=== PATIENT | male | born 1990 | race Caucasian/White ===

== ENCOUNTER 2021-05-07 10:01 | Outpatient (CLI) | payer OTHER ==
[2021-05-07 13:04] VITALS: BP 136/75
--- NOTE | 2021-05-07 13:04 | SLEEP CARE CONSULTATION ---
Information from patient questionnaire entered by Karen Magallon MA. I have reviewed and concur with the information entered by Karen Magallon MA. This document represents the service I personally performed and the decisions made by me, Nancy Lemus MD, [facility]. History of Present Illness Service Date and Time: 05/07/2021 1001 Reason for Visit: New patient (ONSET 03/2019, NO PRIORS,) Chief Complaint: reports: Insomnia, Snoring, Observed pauses in breathing, Fatigue, Frequent awakenings at night, Other Date of Onset: 3 PLUS YEARS Usual bedtime: 0130 - 0200 Time it takes to fall asleep: 30 MINUTES TO N HOUR Snores at night: Yes Observed to quit breathing while asleep: Yes Sleeps alone due to snoring: No Number of times waking at night: 3 OR MORE Reasons for waking at night: reports: Choking, Gasping for air, Other Toss, Turn, or Twitch while sleeping: Yes Recalls having dreams: Yes Usually gets out of bed at: 1000 AM Morning headache: No Sleepy or fatigued during the day: No Ever fallen asleep while driving: No Takes day naps: No Dreams during day naps: Yes Prior sleep studies: No Additional HPI information: I had the pleasure of seeing Mr. Marcus today regarding the possibility of him hav ing a sleep disorder. As you know, he is a 30-year-old gentleman who complains of loud snore, observed apneas, and frequent awakening. The patient tells me that he normally goes to bed around 1:30 - 2 am, and it takes him approximately 30 - 60 minutes to fall asleep. He has been told that he snores loudly and irregularly at night. He has also been observed to stop breathing in his sleep. His girlfriend can still sleep in the same bed. He can recall waking up on the average of 3+ times during the night. Most of the time he wakes up because of unknown reason. He has awakened occasionally because of his own snoring, choking, and having to gasp for air. There is a lot of tossing and turning in his sleep. No somniloquy (sleep talking) or somnambulism (sleep walking). Generally, he can recall having dreams. In the morning he usually gets up out of the bed around 10 a.m. occasionally not feeling refreshed or rested. He usually does not have a morning headache. During the day he does not feel sleepy or fatigued. His score on [place] Sleepiness Scale is 2 out of 24. He never has fallen asleep while driving nor has had any accident due to sl eepiness. He usually does not take naps during the day. Upon falling asleep during the day he reports having dreams. He has never had sleep paralysis, experienced cataplexy or symptoms of restless leg syndrome. He denies having impaired concentration during the day. 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 Patient is Single and lives in [place]. Have you smoked in the past 12 months: Yes Cigarettes per day (20/pack): 20 Years of smokin Smoking Pack Years: 10.0 Alcohol use: Yes Alcohol amount and frequency: 2 - 3 X WEEKLY Caffeine use: Yes Caffeine amount and frequency: 2 X DAILY Family History Family history of sleep disordered breathing: Yes Family Hx Sleep Apnea: Mother: Snoring, Sleep apnea - Untreated, Father: Snoring, Sleep apnea - Untreated Allergies and Home Medications Known drug allergies: No Drug allergies reviewed: Yes (none) Home medication list reviewed: Yes (none) Review of Systems Cardiovascular: denies: high blood pressure, palpitations, chest pain, irregular heart rate or pulse, leg or foot swelling, have to sleep sitting up, other Respiratory: denies: shortness of breath, wheeze, sputum production, chronic cough, other Gastrointestinal: denies: heartburn, difficulty swallowing, nausea, vomitting, diarrhea, abdominal pain, other Urinary: denies: incontinence, frequency, urgency, impotence, other Neurological: denies: headaches, seizure, head trauma, disorientation, speech dysfunction, gait or balance problems, fainting or unconsciousness, other Psychiatric: denies: Attention Deficit Hyperactivity, anxiety, depression, mood disorder, claustrophobia, other Ear/Nose/Throat: denies: nasal congestion, sinus problems, nose bleeds, dry mouth/throat, hoarseness, injury to nose, tonsillectomy, wisdom teeth removed, other Endocrine: denies: thyroid disease, history of goiter, sluggishness, too hot or cold, excessive thirst, increased appetite, increased urination, unexplained weakness, other Musculoskeletal: denies: joint pain, neck pain, back pain, joint swelling, muscle pain or cramping, mobility problems, other Immunologic: denies: sneezing, rash, itching, allergies to food or environment, other Physical Exam Vital signs obtained and entered by: Cindy MAGALLON CMA [facility] Blood Pressure: 136/75 (RIGHT, PULSE 82, REP 16,) Cuff size: wrist Heart Rate: 78 O2 Saturation: 98 (CLOTH MASK) Height: 5 ft 10 in Weight: 208 lb (W/O CLOTHES) Body Mass Index: 29.8 BMI Classification: Overweight Mood/affect: normal HEENT: No craniofacial malformation Nostrils: partially obstructed Turbinates: normal Septum: midline Mouth and throat: narrow oropharynx Soft palate: long Hard palate: normal Uvula: normal Uvula visualization: 50% Mallampati Class II Tongue: normal in size Impression and Plan IMPRESSION: 1. Obstructive Sleep Apnea-Hypopnea Syndrome, as suggested by history of loud and irregular snoring, observed cessation of breath while asleep, nocturnal choking, and frequent awakenings during the night. Narrow oropharynx and obesity are common predisposing factors for obstructive sleep apnea-hypopnea syndrome. I recommend proceeding to polysomnography to confirm the diagnosis and to assess severity. If he has significant sleep disordered breathing, a manual CPAP titration study will also be performed to find the optimal treatment pressure. I informed the patient of what the sleep studies involve and after some discussion, he agreed to proceed. Plan: 1. Schedule polysomnography + manual CPAP titration study and return in 1 to 2 weeks after the study to discuss result and initiate therapy. 2. Avoid long distance driving or when feeling sleepy. 3. Avoid alcohol, sedative and muscle relaxant around bedtime. 4. Attempt to lose weight. Follow up with Sleep Care in: 1-2 months Plan: sleep study Visit Type: In Office Time Spent with Patient (minutes): 15 Provider Statement: I spent 100% of the Face to Face Visit with the patient with greater than 50% spent counseling the patient and coordination of care.
== END 2021-05-07 10:02 | disposition home or self-care (01) ==
LOC: SC 10:01
PROVIDERS: ATTEND Internal Medicine Pulmonary Disease
DX: R06.83 Snoring (principal); G47.8 Other sleep disorders; R06.81 Apnea, not elsewhere classified
CPT/HCPCS: 99202; 99212

== ENCOUNTER 2021-05-29 12:22 | Outpatient (CLI) | payer OTHER | END 2021-05-29 12:23 | disposition home or self-care (01) | LOC: SC 12:22 | PROVIDERS: ATTEND Nurse Practitioner Family | DX: G47.33 Obstructive sleep apnea (adult) (pediatric) (principal); R09.02 Hypoxemia; R00.0 Tachycardia, unspecified | CPT/HCPCS: 95806 ==

== ENCOUNTER 2021-06-25 12:36 | Outpatient (CLI) | payer OTHER ==
[2021-06-25 22:11] VITALS: BP 112/78
--- NOTE | 2021-06-25 22:11 | SLEEP CARE CONSULTATION ---
Information from patient questionnaire entered by Karen Magallon MA. I have reviewed and concur with the information entered by Karen Magallon MA. This document represents the service I personally performed and the decisions made by me, Nancy Lemus MD, [facility]. History of Present Illness Service Date and Time: 06/25/2021 1236 Initial [place] Sleepiness Scale score: 2 (2021) Current [place] Sleepiness Scale score: 4 (07/06) Additional HPI information: Mr. Marcus returned for follow up of the sleep study he had on 05/30/2021. The test showed mild obstructive sleep apnea-hypopnea, with an AHI of 12.8/hr and kanu SaO2 of 80%. During the study, the patient had 39 apneas (39 obstructive, 0 central, 0 mixed) and 32 hypopneas. The longest episode lasted 68.5 seconds. The patient did not sleep supine during this study (supine AHI was 0, and non- supine, 12.80). Hypoxemia was mild, with the lowest oxygen saturation of 80 % and 33.3 minutes with SaO2 under 90%. Baseline oxygen saturation was normal (Average oxygen saturation was 94%). The patient was informed of these findings. I explained to him the pathophysiology behind obstructive sleep apnea. We then spent quite a bit of time discussing different treatment options. For mild obstructive sleep apnea, surgery and oral appliance are alternatives to nasal CPAP therapy but in moderate or severe cases, nasal CPAP is the most effective and reliable treatment. Weight loss in an obese individual is strongly recommended. After some discussion, he opted to go with the nasal CPAP therapy. I explained to him how CPAP machine works and what to expect when using the machine. He is encouraged to use CPAP every night especially in the first 2 to 3 nights in order to get used to it. He should call his CPAP supplier or me to discuss any mechanical problem that may occur. If he snores or feels like he is not getting enough air from the machine, he should notify me and I will increase the pressure. Sleep Study - Results Type of Sleep Study: Home sleep study (F/U HOME STUDY, 05/30/2021 [facility],) Prior sleep studies: No Allergies and Home Medications Drug allergies reviewed: Yes Home medication list reviewed: Yes Physical Exam Vital signs obtained and entered by: ITALO PINEDA Blood Pressure: 112/78 (RIGHT, RESP 16, PULSE 60.) Heart Rate: 61 O2 Saturation: 97 (PAPER MASK) Height: 5 ft 10 in Weight: 215 lb (W/O CLOTHES) Body Mass Index: 30.8 BMI Classification: Obese Impression and Plan IMPRESSION: 1. Obstructive Sleep Apnea-Hypopnea Syndrome, mild, associated with mild hypoxemia. Possibly, this is the cause of the patients symptoms of unrefreshed sleep, and excessive daytime sleepiness. As mentioned above, the patient will be started on an autoCPAP set between 5 and 15 cmH2O. Depending on his response and compliance he may be brought back for an overnight CPAP titration study. PLAN: 1. Prescription made for an autoCPAP, heated humidifier, and related supplies. 2. Attempt to lose weight and avoid alcohol consumption near bedtime. 3. Return for follow up after one month of using the CPAP. Prescriptions: Auto CPAP Follow up with Sleep Care in: 1-2 months Visit Type: In Office Time Spent with Patient (minutes): 15 Provider Statement: I spent 100% of the Face to Face Visit with the patient with greater than 50% spent counseling the patient and coordination of care.
== END 2021-06-25 12:37 | disposition home or self-care (01) ==
LOC: SC 12:36
PROVIDERS: ATTEND Internal Medicine Pulmonary Disease
DX: G47.33 Obstructive sleep apnea (adult) (pediatric) (principal); R09.02 Hypoxemia; E66.9 Obesity, unspecified; Z68.30 Body mass index [BMI] 30.0-30.9, adult
CPT/HCPCS: 99212

== ENCOUNTER 2022-01-24 08:00 | Outpatient (CLI) | payer OTHER ==
[2022-01-24 13:35] LABS: INFLUENZA A- RESP PCR PANEL NOT DETECTED; INFLUENZA B - RESP PCR PANEL NOT DETECTED; RSV- RESP PCR PANEL NOT DETECTED; SARS-CoV-2 -RESP PCR PANEL NOT DETECTED
== END 2022-01-24 23:59 | disposition home or self-care (01) ==
LOC: LAB.N 08:00
PROVIDERS: ATTEND Registered Nurse
DX: U07.1 COVID-19 (principal)
CPT/HCPCS: 87637

== ENCOUNTER 2022-03-17 11:48 | Emergency (ER) | payer OTHER ==
[2022-03-17 12:39] VITALS: BP 147/87
[2022-03-17] MEDS ORDERED: LIDOCAINE 1% 2 ML VIAL SUBQ STA (12:45)
--- NOTE | 2022-03-17 12:57 | ED Physician Documentation ---
History of Present Illness - Stated complaint Stated Complaint: LT EAR RING STUCK - Chief complaint Chief Complaint: Heent - History obtained from History obtained from: Patient, Family - History of Present Illness Timing: Last night Pain level max: 3 Pain level now: 3 - Additonal information Additional information: 31-year-old male presents to the emergency department with an earring backing Stuck in the left earlobe. The piercing is about 3 months old. No fevers. No chills. No cough. No congestion. No drainage. Attempted to remove it at home but was unable to. Review of Systems Constitutional: denies: Fever, Chills GI: denies: Vomiting Skin: denies: Rash Musculoskeletal: denies: Neck pain, Back pain Neurologic: denies: Headache PD PAST MEDICAL HISTORY - Past Medical History Past Medical History: No Cardiovascular: None Respiratory: None Neuro: None Endocrine/Autoimmune: None GI: None : None HEENT: None Psych: None Musculoskeletal: None Derm: None - Past Surgical History Past Surgical History: No - Present Medications Home Medications: Ambulatory Orders Medication Instructions Recorded Confirmed No Known Home Medications 03/17/22 03/17/22 - Allergies Allergies/Adverse Reactions: Allergies Allergy/AdvReac Type Severity Reaction Status Date / Time No Known Drug Allergies Allergy Verified 03/17/22 12:00 - Social History Does the pt smoke?: No Smoking Status: Never smoker Does the pt drink ETOH?: Yes Does the pt have substance abuse?: No - Immunizations Immunizations are current?: Yes PD ED PE NORMAL - Vitals Vital signs reviewed: Yes - General General: Alert and oriented X 3, No acute distress - HEENT HEENT: Moist mucous membranes, Other (L earlobe - metal backing visible, mostly subcutaneous. mild erythema and swelling) - Derm Derm: Warm and dry - Neuro Neuro: Alert and oriented X 3 - Psych Psych: Normal mood, Normal affect Results - Vitals Vitals: Vital Signs - 24 hr 03/17/22 03/17/22 11:58 12:38 Temperature 36.0 C L Heart Rate 96 95 Respiratory 16 16 Rate Blood Pressure 140/97 H 147/87 H O2 Saturation 97 98 Oxygen O2 Source Room air Procedures - FB removal FB location: Ear FB removal preparation: Local anesthesia-specify (1% lidocaine, 1ml) Removal method: Foreceps FB removal aftercare: No complications, Patient tolerated well, Removed successfully PD Medical Decision Making - ED course Complexity details: considered differential, d/w patient ED course: Earring backing was removed. No complications. Tolerated well. Band-Aid applied. No indication for antibiotics. No signs of infection. Patient counseled regarding signs and symptoms for which I believe and urgent re- evaluation would be necessary. Patient with good understanding of and agreement to plan and is comfortable going home at this time This document was made in part using voice recognition software. While efforts are made to proofread this document, sound alike and grammatical errors may occur. Departure - Departure Disposition: 01 Home, Self Care Clinical Impression: Foreign body (FB) in soft tissue Condition: Good Instructions: ED Foreign Body Soft Tissue Removed Follow-Up: Marlo Osorio MD [Primary Care Provider] - As Needed Comments: Please keep the area clean. The earring backing was removed. Please follow-up with your doctor as needed for further care. Return if you worsen.
== END 2022-03-17 13:02 | disposition home or self-care (01) ==
LOC: ED 11:48
DX: M79.5 Residual foreign body in soft tissue (principal)
CPT/HCPCS: 69200; 99281

== ENCOUNTER 2023-08-13 14:18 | Emergency (ER) | payer OTHER ==
--- NOTE | 2023-08-13 14:37 | XRAY Report ---
PROCEDURE: Ankle 3+V LT INDICATIONS: Trauma TECHNIQUE: 3 views of the ankle were acquired. COMPARISON: None. FINDINGS: Bones: No fractures or dislocations. Ankle mortise is normally aligned. No suspicious bony lesions . Soft tissues: No tibiotalar joint effusion. Achilles tendon appears normal. IMPRESSION: No visualized acute fracture or dislocation. However, occult injury cannot be excluded. Recommend faby rt interval imaging follow-up in 7-10 days as clinically indicated for additional evaluation. Reviewed by: Sara Baez MD on 08/13/2023 2:35 PM PDT Approved by: Sara Baez MD on 08/13/2023 2:35 PM PDT Station ID: [id number]
--- NOTE | 2023-08-13 15:00 | ED Physician Documentation ---
PD HPI LOWER EXT INJURY - Stated complaint Stated Complaint: LT LEG PX - Chief complaint Chief Complaint: Trauma Ext - History obtained from History obtained from: Patient - History of Present Illness PD HPI LOW EXT INJURY LOCATION: Left, Ankle - Additional information Additional information: 32-year-old male presents with left ankle pain. Symptoms started a couple of days ago, he denies any acute injury, no increasing activity, walking, repetitive motion injuries. He was not able to sleep last night due to the pain. 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 He has been taking Tylenol and ibuprofen without relief in his symptoms. No history of gout, rare alcohol use. No fever or chills, no calf pain. Review of Systems Constitutional: reports: Reviewed and negative Cardiac: reports: Reviewed and negative Respiratory: reports: Reviewed and negative GI: reports: Reviewed and negative : reports: Reviewed and negative Skin: reports: Reviewed and negative Musculoskeletal: reports: Joint pain Neurologic: reports: Reviewed and negative Psychiatric: reports: Reviewed and negative PD PAST MEDICAL HISTORY - Past Medical History Past Medical History: No Cardiovascular: None Respiratory: None Neuro: None Endocrine/Autoimmune: None GI: None : None HEENT: None Psych: None Musculoskeletal: None Derm: None - Past Surgical History Past Surgical History: No - Present Medications Home Medications: Ambulatory Orders Medication Instructions Recorded Confirmed HYDROcod/ACETAM 5/325 [[place] 5/325] 1 - 2 tablet PO Q6H PRN #14 tablet 08/13/23 predniSONE [Deltasone] 10 mg PO [id number] #42 tab 08/13/23 - Allergies Allergies/Adverse Reactions: Allergies Allergy/AdvReac Type Severity Reaction Status Date / Time No Known Drug Allergies Allergy Verified 08/13/23 14:22 - Social History Does the pt smoke?: No Smoking Status: Never smoker Does the pt drink ETOH?: Yes Does the pt have substance abuse?: No - Immunizations Immunizations are current?: Yes - POLST Patient has POLST: No PD ED PE NORMAL - Vitals Vital signs reviewed: Yes - General General: Alert and oriented X 3, No acute distress, Well developed/nourished - HEENT HEENT: Atraumatic, Moist mucous membranes - Cardiac Cardiac: RRR, No murmur - Respiratory Respiratory: No respiratory distress, Clear bilaterally - Derm Derm: Normal color, Warm and dry, No rash - Extremities Extremities: No deformity, No edema, No calf tenderness / cord, Other (tendernss left ankle both med/lat w/ ttp over the left atfl, no erythema, no edema or swelling. decreased flx/ex due to pain. 2+ pedal pulses, normal cap refill/color. no other foot ttp. ) Results - Vitals Vitals: Vital Signs - 24 hr 08/13/23 14:22 Temperature 36.5 C Heart Rate 100 Respiratory 16 Rate Blood Pressure 150/90 H O2 Saturation 97 Oxygen O2 Source Room air PD Medical Decision Making - ED course Complexity details: considered differential, d/w patient ED course: 32-year-old male presents with left ankle pain. Pain is atraumatic, no increase in activity or overuse, no erythema. Differentials considered included gout, overuse injury, arthritis, low suspicion for septic arthritis, no other symptoms of DVT or vascular issue. His tenderness on exam of x-ray is negative. Suspect this is likely gout versus overuse, and will trial a course of prednisone. The patient is advised on supportive measures as well as dietary recommendations. He was encouraged to keep joint elevated, use cool compress, and rest the ankle for the next couple of days. We have prescribed a short course of hydrocodone to use only if Tylenol is insufficient. I discussed return precautions if any new or worsening symptoms. Departure - Departure Disposition: 01 Home, Self Care Clinical Impression: Gout Qualifiers: Gout site: ankle Gout etiology: idiopathic Chronicity: acute Laterality: left Qualified Code(s): M10.072 - Idiopathic gout, left ankle and foot Condition: Good Instructions: ED Arthritis Gout, ED Diet Gout Prescriptions: predniSONE [Deltasone] 10 mg PO [id number] #42 tab HYDROcod/ACETAM 5/325 [[place] 5/325] 1 - 2 tablet PO Q6H PRN #14 tablet PRN Reason: Pain Comments: I am prescribing a short course of narcotic pain medication for you. These are potentially dangerous and addictive medications that should be used carefully. These medications may constipate you. Take an [id number] stool softener (docusate) twice daily with plenty of water while taking these medications. If you go 24 hours without a bowel movement, take [id number] miralax, per package instructions. Do not drink or drive while taking these medications. If you received narcotic or sedating medications while in the emergency department, do not drive for 24 hours. Store this medication in a safe, secure place and out of reach of children. It is a violation of federal law to give or sell this medication to another person or to use in a manner other than prescribed. The ED will not refill narcotic prescriptions, including prescriptions lost or stolen. To dispose of unwanted medications: 1. [facility] provides a drop box for medication in pill form only (no liquids) 8:00 am to 4:30 p.m. Friday-Friday in the lobby of the [facility] [place], [address] [place] [address]. Empty pills into ziplock bag before disposal. Call [phone] for information. 2.[email or web address] is a free service available to all [facility] residents. Go to [email or web address] Note that many narcotic pain relievers also contain Tylenol/acetaminophen. Please ensure that your total dose of acetaminophen from all sources does not exceed 3 g (3000 mg) per day. Forms: PCP List, Activity restrictions
[2023-08-13 15:45] VITALS: BP 153/92; O2SAT 98
== END 2023-08-13 15:41 | disposition home or self-care (01) ==
LOC: ED 14:18
DX: M10.072 Idiopathic gout, left ankle and foot (principal)
CPT/HCPCS: 99283